=== PATIENT | female | born 2000 | race Caucasian/White ===

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

== ENCOUNTER 2022-09-04 12:03 | Emergency (ER) | payer MEDICAID, OTHER ==
[~2022-09-04] VITALS: Ht 157.5 cm; Wt 55.8 kg
[~2022-09-04 12:03] MED LIST: CYCL-711 PO; NAPR-54 PO
[2022-09-04 12:08] VITALS: BP 101/60
--- NOTE | 2022-09-04 12:15 | NUR ---
URINE CUP PROVIDED. TO REGAN Paul/ INSTRUCTION. AWAIT ROOM ASSIGNMENT FROM POLITICAL CARTOONIST.
--- NOTE | 2022-09-04 12:28 | NUR ---
AMB. TO BED 3 W NO DIFFICULTY
[2022-09-04 12:44] LABS: BASOPHILS % (AUTO) 0.5 % (0.0-2.0); EOSINOPHILS # (AUTO) 0.1 K/uL (0-0.4); EOSINOPHILS % (AUTO) 1.8 % (0.0-4.0); HEMATOCRIT 36.3 % (36-48); HEMOGLOBIN 12.4 g/dL (12.0-16.0); LYMPHOCYTES # (AUTO) 1.4 K/uL (2.5-16.5); LYMPHOCYTES % (AUTO) 21.2 % (20.5-51.1); MEAN CORPUSCULAR HEMOGLOBIN 28 pg (27-31); MEAN CORPUSCULAR HGB CONC 34 g/dL (33-37); MONOCYTES # (AUTO) 0.5 K/uL (0.8-1.0); MONOCYTES % (AUTO) 8.1 % (1.7-9.3); NEUTROPHILS # (AUTO) 4.4 K/uL (1.8-7.7); NEUTROPHILS % (AUTO) 68.4 % (42.2-75.2); PLATELET COUNT (AUTO) 248 K/uL (140-450); RED BLOOD CELL COUNT(AUTO) 4.43 MIL/uL (4.20-5.40); RED CELL DISTRIBUTION WIDTH 13.6 % (11.6-13.7); WHITE BLOOD COUNT (AUTO) 6.4 K/uL (4.5-11.0)
--- NOTE | 2022-09-04 12:48 | NUR ---
LAB AT FOR BLOOD DRAW. URINE SENT. ULTRASOUND AT BS. STUDY IN PROGRESS. PT JEANETTE WELL.
[2022-09-04 12:53] LABS: APPEARANCE,URINE CLEAR (CLEAR); BILIRUBIN,URINE 1+ (NEGATIVE); BLOOD, URINE 3+ (NEGATIVE); COLOR,URINE YELLOW (YELLOW); LEUKOCYTE ESTERASE ,URINE 1+ (NEGATIVE); NITRITE, URINE POSITIVE (NEGATIVE); UGLUCOSE NEGATIVE (NEGATIVE)
[2022-09-04 13:08] LABS: RBC,URINE TOO NUMEROUS TO COUN /HPF (0-5)
[2022-09-04 13:09] LABS: TRICHOMONAS,URINE None Seen /HPF (None Seen); WBC,URINE TOO MANY TO COUNT /HPF (0-5); YEAST,URINE None Seen /HPF (None Seen)
[2022-09-04] MEDS ORDERED: CEPH-588 PO (13:59)
[2022-09-04] MEDS ORDERED: cephALEXin 500 MG CAP PO ONE (14:50)
[2022-09-04 15:19] VITALS: BP 106/60
--- NOTE | 2022-09-04 15:20 | NUR ---
The patient's care was reviewed and supervised by [facility], RN.
== END 2022-09-04 15:19 | disposition home or self-care (01) ==
LOC: MED 12:03
DX: O23.11 Infections of bladder in pregnancy, first trimester (principal); O46.91 Antepartum hemorrhage, unspecified, first trimester; O26.891 Other specified pregnancy related conditions, first trimester; Z3A.01 Less than 8 weeks gestation of pregnancy
CPT/HCPCS: 36415; 76817; 81001; 84702; 85025; 86900; 86901; 87086; 99284; Q0092